=== PATIENT | female | born 1945 | race Caucasian/White ===

== ENCOUNTER → 2018-11-05 | Outpatient (CLI) | payer OTHER, MEDICARE ==
[~2018-11-05] MED LIST: AMITRIPTYLINE H25 M2 PO; ANASPAZ0.125 MG SL; BENTYL10 MG PO; BUMETANIDE 0.50.5 M1 PO; CALCIUM CITRAT1 EA14 PO; CENTRUM SILVER1 EAC4 PO; CITRUCEL500 MG PO; COLD; COZAAR 25 MG TA25 M1 PO; CYCLOBENZAPRINE10 MG PO; CYMBALTA30 MG PO; DIPHEN/ATROP PO; K-DUR 20 MEQ T20 MEQ PO; LACTAID EXT4500 UNIT PO; METHOCARBAMOL500 M2 PO; MINIVELLE1 EAC1 TD; MOTRIN IB PO; NEURONTIN 300M300 M2 PO; PHENERGAN 25 MG25 M1 PO; PHENERGAN12.5 M2 RECTAL; PREVACID15 MG PO; PRINIVIL5 MG PO; SINUS; SYNTHROID75 MCG PO; VITAMIN B-12500 MCG PO; VITAMIN D1000 UNI1 PO; VITAMIN D400 UNI1 PO; VITAMIN E200 UNI3 PO; VIVELLE-DOT1 EAC1 TD; ZOFRAN ODT4 MG PO; ZYRTEC10 M2 PO; [UNRECOGNIZED DRUG - OTHER] PO
--- NOTE | 2018-11-10 21:30 | SLE ---
[facility] [place] [address] POLYSOMNOGRAPHY STUDY Name: ALBERTO ROCHE Room #: [facility]#: [id number] Admission: 11/05/18 Attend Phys: Jonathon Barba MD Discharge: Date of : 43 Report #: [id number] THIS REPORT FOR: //name// CC: Steff Barba MD DATE OF SERVICE: 11/05/2018 ATTENDING PHYSICIAN: Dr. Jonathon Barba. The patient is 73 years old who weighs 215 pounds with a BMI of 39.3. The patient's [place] score was 5. The patient underwent home sleep study performed by [facility]. Total recording time was 515 minutes. During the night study, the patient had 6 obstructive apneas, 1 central apnea, no mixed apneas and 48 hypopneas. The patient's apnea hypopnea index was 6.8 per hour with a supine index of 8.2 per hour. Nocturnal oximetry study revealed an average oxygen saturation of 89% with a lowest of 82%. 255 minutes were spent in oxygen saturation less than 90%. Mean heart rate 64 beats per minute with a maximum of 90 beats per minute. IMPRESSION: 1. Mild sleep apnea-hypopnea syndrome at an AHI of 6.8 per hour. 2. Sustained pattern of nocturnal hypoxia likely a combination of hypoventilation and sleep apnea. RECOMMENDATIONS: 1. I would recommend weight loss as initial form of treatment. 2. If the patient remains clinically symptomatic or has comorbid conditions, then the patient's sleep apnea can be treated with either an oral appliance versus CPAP. 3. Avoid SHANK SORTER depressants. 4. Cautioned regarding driving until symptoms of sleep apnea resolve with the above recommendations. 5. Patient would benefit from 1 litre oxygen with sleep if she does not undergo CPAP treatment. <ELECTRONICALLY SIGNED> By: Kehinde Bajwa MD 11/10/18 [id number] Kehinde Bajwa MD /nt
== END ==
LOC: SLEEPLAB 13:51
DX: G47.33 Obstructive sleep apnea (adult) (pediatric) (principal); G47.30 Sleep apnea, unspecified; R09.02 Hypoxemia